=== PATIENT | female | born 1940 | race Two or more races ===

== ENCOUNTER 2017-01-25 08:12 | Inpatient (IN) | payer MEDICARE, MEDICAID ==
[~2017-01-25] VITALS: Ht 152.4 cm; Wt 49.6 kg
[~2017-01-25 08:12] MED LIST: ASCO-96 PO; ASPI-496 PO; ATOR40TA78 PO; CILO100T PO; DULO30CA2 PO; GABA300C10 PO; HYDR12.58 PO; INSU100V8 SQ; LOSA100T6 PO; MAGN250T8 PO; METF500T4 PO; RANI150C PO
[2017-01-25] MEDS ORDERED: LACTATED RINGERS 1,000 ML IV SCH (08:52)
[2017-01-25 08:58] VITALS: BP 171/92
[2017-01-25] MEDS ORDERED: PROPOFOL 50 ML ONE ×2 (09:13→11:18)
[2017-01-25] MEDS ORDERED: MIDAZOLAM 1 MG/ML, 2ML ONE (09:14)
[2017-01-25] MEDS ORDERED: FENTANYL PF 250 MCG/5ML ONE (09:14)
[2017-01-25] MEDS ORDERED: THROMBIN 5,000 UNIT VIAL TP ONE (09:18)
[2017-01-25] MEDS ORDERED: BUPIVACAINE/PF 0.25% ONE (09:18)
[2017-01-25] MEDS ORDERED: LIDOCAINE/PF 0.5% ,50ML ONE (09:18)
[2017-01-25] MEDS ORDERED: PROPOFOL 10 MG/ML, 20ML ONE (09:18)
[2017-01-25] MEDS ORDERED: VANCOMYCIN 1,000 MG ONE (09:18)
[2017-01-25] MEDS ORDERED: EPINEPHRINE 1 MG/ML, 1ML ONE (09:19)
[2017-01-25] MEDS ORDERED: CEFAZOLIN 1,000 MG ONE (09:54)
[2017-01-25] MEDS ORDERED: ONDANSETRON 2MG/ML, 2ML ONE (09:54)
[2017-01-25] MEDS ORDERED: DEXAMETHASONE 4 MG/ML, 5ML ONE (09:54)
[2017-01-25] MEDS ORDERED: SUCCINYLCHOLINE 20 MG/ML, 10ML ONE (09:54)
[2017-01-25] MEDS ORDERED: ROCURONIUM 10 MG/ML ONE (09:54)
[2017-01-25] MEDS ORDERED: HYDROmorphone 1 MG/ML, 1ML IV PRN (13:00)
[2017-01-25] MEDS ORDERED: ONDANSETRON 2MG/ML, 2ML IVPush PRN (13:00)
[2017-01-25] MEDS ORDERED: MIDAZOLAM 1 MG/ML, 2ML IV PRN (13:00)
[2017-01-25] MEDS ORDERED: OXYcodone 5 MG/5 ML ORAL.SOL UDC PO PRN (13:00)
[2017-01-25] MEDS ORDERED: LABETALOL 5MG/ML, 20ML IV PRN (13:00)
[2017-01-25] MEDS ORDERED: ACETAMINOPHEN 325 MG TABLET PO PRN (13:00)
[2017-01-25] MEDS ORDERED: ACETAMINOPHEN 650 MG/20.3 ML UDC ONE (13:12)
[2017-01-25] MEDS ORDERED: hydrALAzine 20 MG/ML, 1ML ONE (13:12)
[2017-01-25] MEDS ORDERED: FENTANYL PF 100 MCG/2ML ONE (13:13)
[2017-01-25] MEDS ORDERED: OXYcodone 5 MG/5 ML ORAL.SOL UDC ONE (13:13)
[2017-01-25] MEDS: hydrALAzine 20 MG/ML, 1ML IV PRN ×2 (13:15→15:36)
[2017-01-25] MEDS: FENTANYL PF 100 MCG/2ML IV PRN ×3 (13:34→14:40)
[2017-01-25 15:45] VITALS: BP 140/67
[2017-01-25] MEDS ORDERED: HYDROcodone/APAP 10/325 MG TABLET PO PRN (16:00)
[2017-01-25] MEDS ORDERED: ONDANSETRON 2MG/ML, 2ML IV PRN (16:00)
[2017-01-25] MEDS ORDERED: morphine SULFATE 10 MG/ML, 1ML IV PRN (16:00)
[2017-01-25] MEDS ORDERED: PROMETHAZINE 25 MG/ML, 1ML IM PRN (16:00)
[2017-01-25] MEDS ORDERED: MAGNESIUM HYDROXIDE 8%, 30ML UDC PO PRN (16:00)
[2017-01-25] MEDS ORDERED: metFORMIN 500 MG TABLET PO SCH (17:00)
[2017-01-25] MEDS: NS + 20MEQ KCL 1,000 ML IV SCH (18:09)
[2017-01-25] MEDS: CEFAZOLIN PMX 1GM/50ML 50 ML IVPB SCH (18:09)
[2017-01-25] MEDS: CLINDAMYCIN 300 MG CAPSULE PO SCH (18:34)
[2017-01-25] MEDS: HYDROcodone/APAP 5/325 TABLET PO PRN (18:35)
[2017-01-25 19:58] VITALS: BP 147/73
[2017-01-25] MEDS: INSULIN ASPART 100 UNITS/ML, PEN SQ-INSULIN SCH (21:00)
[2017-01-25] MEDS ORDERED: ATORVASTATIN 40 MG TABLET PO SCH (21:00)
[2017-01-25] MEDS ORDERED: CILOSTAZOL 100 MG TABLET PO SCH (21:00)
[2017-01-25] MEDS ORDERED: INSULIN DETEMIR 100 UNITS/ML, PEN SQ-INSULIN SCH (21:00)
[2017-01-25] MEDS: FAMOTIDINE 20 MG TABLET PO SCH (21:39)
[2017-01-25] MEDS: GABAPENTIN 300 MG CAPSULE PO SCH (21:39)
[2017-01-26] VITALS: BP 158/82
[2017-01-26] MEDS: CLINDAMYCIN 300 MG CAPSULE PO SCH ×4 (01:21→17:11)
[2017-01-26] MEDS: HYDROcodone/APAP 5/325 TABLET PO PRN ×2 (01:32→09:11)
[2017-01-26] MEDS: CEFAZOLIN PMX 1GM/50ML 50 ML IVPB SCH (01:32)
[2017-01-26 02:22] VITALS: BP 160/88
[2017-01-26] MEDS ORDERED: METOPROLOL SUCCINATE 100 MG TAB.ER.24H PO SCH (06:00)
[2017-01-26] MEDS: NS + 20MEQ KCL 1,000 ML IV SCH ×3 (06:56→12:15)
[2017-01-26 08:25] VITALS: BP 197/92
[2017-01-26] MEDS: INSULIN ASPART 100 UNITS/ML, PEN SQ-INSULIN SCH ×4 (08:51→21:00)
[2017-01-26] MEDS ORDERED: LOSARTAN 50MG TABLET PO SCH (09:00)
[2017-01-26] MEDS ORDERED: SENNA/DOCUSATE TABLET PO SCH (09:00)
[2017-01-26] MEDS: GABAPENTIN 300 MG CAPSULE PO SCH ×3 (09:11→21:03)
[2017-01-26] MEDS: FAMOTIDINE 20 MG TABLET PO SCH ×5 (09:11→21:03)
[2017-01-26] MEDS: LACTOBACILLUS CHEW TABLET PO SCH ×3 (09:12→17:11)
[2017-01-26] MEDS: ATORVASTATIN 40 MG TABLET PO SCH (09:12)
[2017-01-26] MEDS: DULOXETINE 30 MG CAPSULE.DR PO SCH (09:12)
[2017-01-26] MEDS: HYDROCHLOROTHIAZIDE 12.5 MG CAPSULE PO SCH (09:12)
[2017-01-26] MEDS ORDERED: DEXAMETHASONE 1 MG TABLET PO ONE (10:00)
[2017-01-26 11:39] LABS: BLOOD UREA NITROGEN 15 mg/dL (7-18)
[2017-01-26] MEDS ORDERED: FAMOTIDINE 20 MG TABLET PO SCH (18:00)
[2017-01-26 18:56] VITALS: BP 185/88
[2017-01-26] MEDS ORDERED: LOSARTAN 50MG TABLET PO ONE (20:30)
[2017-01-26] MEDS ORDERED: INSULIN DETEMIR 100 UNITS/ML, PEN SQ-INSULIN ONE (21:00)
[2017-01-26] MEDS ORDERED: METOPROLOL TARTRATE 100 MG TABLET PO SCH (21:00)
[2017-01-26] MEDS: METOPROLOL SUCCINATE 100 MG TAB.ER.24H PO SCH (21:03)
[2017-01-26 23:45] VITALS: BP 198/88
[2017-01-27] MEDS: HYDROcodone/APAP 5/325 TABLET PO PRN (01:58)
[2017-01-27] MEDS: CLINDAMYCIN 300 MG CAPSULE PO SCH ×2 (01:58→09:47)
[2017-01-27 03:52] VITALS: BP 144/65
[2017-01-27 04:27] VITALS: BP 134/66
[2017-01-27 07:26] VITALS: BP 157/86
[2017-01-27] MEDS: NS + 20MEQ KCL 1,000 ML IV SCH ×2 (09:40→18:59)
[2017-01-27] MEDS: INSULIN ASPART 100 UNITS/ML, PEN SQ-INSULIN SCH ×4 (09:40→21:00)
[2017-01-27] MEDS: FAMOTIDINE 20 MG TABLET PO SCH ×3 (09:41→16:11)
[2017-01-27] MEDS: DULOXETINE 30 MG CAPSULE.DR PO SCH (09:48)
[2017-01-27] MEDS: LACTOBACILLUS CHEW TABLET PO SCH ×3 (09:48→16:11)
[2017-01-27] MEDS: HYDROCHLOROTHIAZIDE 12.5 MG CAPSULE PO SCH (09:48)
[2017-01-27] MEDS: LOSARTAN 50MG TABLET PO SCH (09:48)
[2017-01-27] MEDS: GABAPENTIN 300 MG CAPSULE PO SCH ×2 (09:48→16:08)
[2017-01-27] MEDS: ATORVASTATIN 40 MG TABLET PO SCH (09:57)
[2017-01-27 12:00] VITALS: BP 157/82
[2017-01-27] MEDS ORDERED: CLINDAMYCIN 300 MG CAPSULE PO SCH (12:00)
[2017-01-27 15:10] VITALS: BP 152/72
[2017-01-27 15:43] LABS: ABG COLLECTION SITE RIGHT RADIAL; COLLATERAL CIRCULATION TESTING NORMAL
[2017-01-27 15:55] LABS: BLOOD UREA NITROGEN 15 mg/dL (7-18)
[2017-01-27 16:55] LABS: HEMATOCRIT 41.9 % (34.6-47.8); WHITE BLOOD COUNT 13.4 x10^3/uL (3.4-10)
[2017-01-27] MEDS ORDERED: ACETAMINOPHEN 500 MG TABLET PO PRN (19:00)
[2017-01-27 19:53] VITALS: BP 175/77
[2017-01-27] MEDS: METOPROLOL SUCCINATE 100 MG TAB.ER.24H PO SCH (21:00)
[2017-01-28] VITALS (10 sets, daily range): BP systolic 140–184; BP diastolic 81–106
[2017-01-28] MEDS: NS + 20MEQ KCL 1,000 ML IV SCH ×2 (01:04→08:02)
[2017-01-28] MEDS: CLINDAMYCIN 150 MG CAPSULE PO SCH ×3 (02:00→17:41)
[2017-01-28] MEDS: METOPROLOL TARTRATE 100 MG TABLET PO SCH ×3 (02:00→17:41)
[2017-01-28 05:41] LABS: HEMATOCRIT 42.9 % (34.6-47.8); HEMOGLOBIN 14.8 g/dL (11.7-16.4); WHITE BLOOD COUNT 11.6 x10^3/uL (3.4-10)
[2017-01-28 05:53] LABS: BLOOD UREA NITROGEN 22 mg/dL (7-18)
[2017-01-28] MEDS: DULOXETINE 20 MG CAPSULE.DR PO SCH ×3 (08:02→09:45)
[2017-01-28] MEDS: LOSARTAN 50MG TABLET PO SCH (08:03)
[2017-01-28] MEDS: FAMOTIDINE 20 MG TABLET PO SCH (08:03)
[2017-01-28] MEDS: LACTOBACILLUS CHEW TABLET PO SCH ×3 (08:03→17:41)
[2017-01-28] MEDS: ATORVASTATIN 40 MG TABLET PO SCH (08:03)
[2017-01-28] MEDS: HYDROCHLOROTHIAZIDE 12.5 MG CAPSULE PO SCH (08:04)
[2017-01-28] MEDS: INSULIN ASPART 100 UNITS/ML, PEN SQ-INSULIN SCH ×4 (09:55→21:20)
[2017-01-28] MEDS: DOCUSATE 50 MG/5 ML, 10ML UDC PO SCH ×2 (11:09→21:20)
[2017-01-28] MEDS ORDERED: NS + 20MEQ KCL 1,000 ML IV SCH (16:30)
[2017-01-28] MEDS: ACETAMINOPHEN 500 MG TABLET PO SCH (16:41)
[2017-01-29] VITALS (7 sets, daily range): BP systolic 135–164; BP diastolic 67–94
[2017-01-29] MEDS: ACETAMINOPHEN 500 MG TABLET PO SCH ×3 (01:08→16:48)
[2017-01-29] MEDS: CLINDAMYCIN 150 MG CAPSULE PO SCH ×3 (01:58→16:48)
[2017-01-29 05:07] LABS: HEMATOCRIT 41.1 % (34.6-47.8); HEMOGLOBIN 14.1 g/dL (11.7-16.4); WHITE BLOOD COUNT 10.3 x10^3/uL (3.4-10)
[2017-01-29] MEDS: METOPROLOL TARTRATE 100 MG TABLET PO SCH ×2 (06:13→18:33)
[2017-01-29] MEDS: INSULIN ASPART 100 UNITS/ML, PEN SQ-INSULIN SCH ×4 (08:11→21:00)
[2017-01-29] MEDS: LOSARTAN 50MG TABLET PO SCH (08:12)
[2017-01-29] MEDS: LACTOBACILLUS CHEW TABLET PO SCH ×3 (08:12→16:48)
[2017-01-29] MEDS: ATORVASTATIN 40 MG TABLET PO SCH (08:13)
[2017-01-29] MEDS: HYDROCHLOROTHIAZIDE 12.5 MG CAPSULE PO SCH (08:13)
[2017-01-29] MEDS: FAMOTIDINE 20 MG TABLET PO SCH (08:22)
[2017-01-29] MEDS: INSULIN DETEMIR 100 UNITS/ML, PEN SQ-INSULIN PRN (08:35)
[2017-01-29] MEDS: DOCUSATE 50 MG/5 ML, 10ML UDC PO SCH ×2 (10:25→23:09)
[2017-01-29 20:27] LABS: BLOOD UREA NITROGEN 22 mg/dL (7-18)
[2017-01-29] MEDS ORDERED: INSULIN ASPART 100 UNITS/ML, PEN SQ-INSULIN ONE (21:00)
[2017-01-29] MEDS ORDERED: INSULIN DETEMIR 100 UNITS/ML, PEN SQ-INSULIN ONE (21:00)
[2017-01-30] VITALS (8 sets, daily range): BP systolic 127–174; BP diastolic 74–97
[2017-01-30] MEDS ORDERED: FUROSEMIDE 20 MG/2 ML IV ONE
[2017-01-30] MEDS ORDERED: POTASSIUM CHLORIDE 10% 40 MEQ/30 ML UDC NG ONE
[2017-01-30] MEDS: CLINDAMYCIN 150 MG CAPSULE PO SCH ×3 (00:49→16:39)
[2017-01-30] MEDS: ACETAMINOPHEN 500 MG TABLET PO SCH ×3 (00:49→16:39)
[2017-01-30] MEDS: METOPROLOL TARTRATE 100 MG TABLET PO SCH ×3 (06:00→16:39)
[2017-01-30 06:01] LABS: HEMATOCRIT 42.2 % (34.6-47.8); HEMOGLOBIN 14.1 g/dL (11.7-16.4); WHITE BLOOD COUNT 7.9 x10^3/uL (3.4-10)
[2017-01-30 06:08] LABS: BLOOD UREA NITROGEN 23 mg/dL (7-18)
[2017-01-30 06:11] LABS: ASPARTATE AMINO TRANSFERASE 14 U/L (15-37)
[2017-01-30] MEDS: DOCUSATE 50 MG/5 ML, 10ML UDC PO SCH ×2 (07:52→23:30)
[2017-01-30] MEDS: LACTOBACILLUS CHEW TABLET PO SCH ×3 (07:52→16:39)
[2017-01-30] MEDS: HYDROCHLOROTHIAZIDE 12.5 MG CAPSULE PO SCH (07:52)
[2017-01-30] MEDS: FAMOTIDINE 20 MG TABLET PO SCH (07:53)
[2017-01-30] MEDS: LOSARTAN 50MG TABLET PO SCH (07:53)
[2017-01-30] MEDS: ATORVASTATIN 40 MG TABLET PO SCH (07:53)
[2017-01-30] MEDS: INSULIN ASPART 100 UNITS/ML, PEN SQ-INSULIN SCH ×4 (08:17→22:13)
[2017-01-30] MEDS ORDERED: INSULIN ASPART 100 UNITS/ML, PEN SQ-INSULIN SCH (08:30)
[2017-01-30] MEDS ORDERED: INSULIN ASPART 100 UNITS/ML, PEN SQ-INSULIN ONE ×2 (08:30→18:00)
[2017-01-30] MEDS ORDERED: INSULIN DETEMIR 100 UNITS/ML, PEN SQ-INSULIN ONE (08:30)
[2017-01-30] MEDS ORDERED: MAGNESIUM HYDROXIDE 8%, 30ML UDC NG ONE (10:30)
[2017-01-30] MEDS: ASPIRIN 81 MG TABLET CHEW NG SCH (11:01)
[2017-01-30] MEDS ORDERED: CILOSTAZOL 100 MG TABLET NG SCH (21:00)
[2017-01-30] MEDS: INSULIN DETEMIR 100 UNITS/ML, PEN SQ-INSULIN PRN (22:13)
[2017-01-31] VITALS (9 sets, daily range): BP systolic 145–220; BP diastolic 71–103
[2017-01-31] MEDS: ACETAMINOPHEN 500 MG TABLET PO SCH ×3 (00:10→17:03)
[2017-01-31 05:23] LABS: BLOOD UREA NITROGEN 29 mg/dL (7-18)
[2017-01-31] MEDS: METOPROLOL TARTRATE 100 MG TABLET PO SCH ×2 (06:37→17:03)
[2017-01-31] MEDS: LOSARTAN 50MG TABLET PO SCH (08:16)
[2017-01-31] MEDS: ATORVASTATIN 40 MG TABLET PO SCH (08:16)
[2017-01-31] MEDS: FAMOTIDINE 20 MG TABLET PO SCH (08:16)
[2017-01-31] MEDS: DOCUSATE 50 MG/5 ML, 10ML UDC PO SCH ×2 (08:16→20:28)
[2017-01-31] MEDS: ASPIRIN 81 MG TABLET CHEW NG SCH (08:16)
[2017-01-31] MEDS: LACTOBACILLUS CHEW TABLET PO SCH ×3 (08:16→17:03)
[2017-01-31] MEDS: HYDROCHLOROTHIAZIDE 12.5 MG CAPSULE PO SCH (08:16)
[2017-01-31] MEDS: INSULIN ASPART 100 UNITS/ML, PEN SQ-INSULIN SCH ×3 (08:17→18:12)
[2017-01-31] MEDS ORDERED: INSULIN DETEMIR 100 UNITS/ML, PEN SQ-INSULIN ONE (08:30)
[2017-01-31] MEDS: PHENOL THROAT SPRAY BOTTLE MM PRN ×3 (13:05→20:28)
[2017-02-01] VITALS (7 sets, daily range): BP systolic 130–167; BP diastolic 82–92
[2017-02-01] MEDS: INSULIN ASPART 100 UNITS/ML, PEN SQ-INSULIN SCH ×5 (00:01→21:57)
[2017-02-01] MEDS: INSULIN DETEMIR 100 UNITS/ML, PEN SQ-INSULIN PRN ×3 (00:02→21:56)
[2017-02-01 00:23] LABS: PATH.CAST-FLAG NOT PRESENT; SPERM-FLAG NOT PRESENT; SRC-FLAG NOT PRESENT; XTAL-FLAG NOT PRESENT; YLC-FLAG NOT PRESENT
[2017-02-01] MEDS: ACETAMINOPHEN 500 MG TABLET PO SCH ×3 (01:14→16:38)
[2017-02-01 05:53] LABS: HEMOGLOBIN 14.1 g/dL (11.7-16.4); WHITE BLOOD COUNT 9.8 x10^3/uL (3.4-10)
[2017-02-01 06:15] LABS: ASPARTATE AMINO TRANSFERASE 10 U/L (15-37); BLOOD UREA NITROGEN 30 mg/dL (7-18)
[2017-02-01] MEDS ORDERED: LORazepam 2 MG/ML, 1ML IVPush ONE (06:30)
[2017-02-01] MEDS ORDERED: DIPHENHYDRAMINE 50 MG/ML, 1ML IVPush ONE (06:30)
[2017-02-01] MEDS ORDERED: CILOSTAZOL 100 MG TABLET PO SCH (09:00)
[2017-02-01] MEDS: METOPROLOL TARTRATE 100 MG TABLET PO SCH ×2 (09:52→18:00)
[2017-02-01] MEDS: LACTOBACILLUS CHEW TABLET PO SCH ×3 (09:53→16:38)
[2017-02-01] MEDS: ASPIRIN 81 MG TABLET CHEW NG SCH (09:54)
[2017-02-01] MEDS: DOCUSATE 50 MG/5 ML, 10ML UDC PO SCH ×2 (09:54→21:55)
[2017-02-01] MEDS: HYDROCHLOROTHIAZIDE 12.5 MG CAPSULE PO SCH (09:55)
[2017-02-01] MEDS: FAMOTIDINE 20 MG TABLET PO SCH (09:55)
[2017-02-01] MEDS: LOSARTAN 50MG TABLET PO SCH (09:55)
[2017-02-01] MEDS: ATORVASTATIN 40 MG TABLET PO SCH (09:55)
[2017-02-01] MEDS: SULFAMETH/TRIMETHOPRIM 40-8MG/ML SUSP. NG SCH ×2 (10:45→21:55)
[2017-02-01] MEDS ORDERED: ZOLPIDEM 5MG TABLET NG PRN (17:00)
[2017-02-02] MEDS: ACETAMINOPHEN 500 MG TABLET PO SCH ×3 (00:55→17:33)
[2017-02-02 04:15] VITALS: BP 153/77
[2017-02-02 05:33] VITALS: BP 139/88
[2017-02-02] MEDS: METOPROLOL TARTRATE 100 MG TABLET PO SCH ×2 (06:34→17:33)
[2017-02-02 08:25] VITALS: BP 153/98
[2017-02-02] MEDS: INSULIN DETEMIR 100 UNITS/ML, PEN SQ-INSULIN PRN ×2 (08:49→21:53)
[2017-02-02] MEDS: INSULIN ASPART 100 UNITS/ML, PEN SQ-INSULIN SCH ×4 (08:49→21:55)
[2017-02-02] MEDS: LACTOBACILLUS CHEW TABLET PO SCH ×3 (08:49→17:33)
[2017-02-02] MEDS: FAMOTIDINE 20 MG TABLET PO SCH (08:50)
[2017-02-02] MEDS: LOSARTAN 50MG TABLET PO SCH (08:50)
[2017-02-02] MEDS: ATORVASTATIN 40 MG TABLET PO SCH (08:50)
[2017-02-02] MEDS: DOCUSATE 50 MG/5 ML, 10ML UDC PO SCH ×2 (08:51→21:17)
[2017-02-02] MEDS: SULFAMETH/TRIMETHOPRIM 40-8MG/ML SUSP. NG SCH ×2 (08:51→21:17)
[2017-02-02] MEDS: HYDROCHLOROTHIAZIDE 12.5 MG CAPSULE PO SCH (08:51)
[2017-02-02 14:00] VITALS: BP 162/92
[2017-02-02] MEDS: PHENOL THROAT SPRAY BOTTLE MM PRN (15:16)
[2017-02-02 17:21] VITALS: BP 189/103
[2017-02-02 20:02] VITALS: BP 131/81
[2017-02-03 00:07] VITALS: BP 133/68
[2017-02-03] MEDS: ACETAMINOPHEN 500 MG TABLET PO SCH ×2 (00:17→09:45)
[2017-02-03] MEDS: GABAPENTIN 100 MG CAPSULE PO SCH ×3 (04:39→20:58)
[2017-02-03] MEDS: HYDROcodone/APAP 5/325 TABLET PO PRN ×3 (04:40→18:12)
[2017-02-03 04:45] VITALS: BP 145/81
[2017-02-03] MEDS: METOPROLOL TARTRATE 100 MG TABLET PO SCH ×2 (06:45→17:43)
[2017-02-03 08:01] VITALS: BP 146/83
[2017-02-03] MEDS: INSULIN ASPART 100 UNITS/ML, PEN SQ-INSULIN SCH ×4 (09:59→21:30)
[2017-02-03] MEDS: INSULIN DETEMIR 100 UNITS/ML, PEN SQ-INSULIN PRN ×2 (10:00→21:49)
[2017-02-03] MEDS: ATORVASTATIN 40 MG TABLET PO SCH (10:03)
[2017-02-03] MEDS: HYDROCHLOROTHIAZIDE 12.5 MG CAPSULE PO SCH (10:04)
[2017-02-03] MEDS: FAMOTIDINE 20 MG TABLET PO SCH (10:04)
[2017-02-03] MEDS: SULFAMETH/TRIMETHOPRIM 40-8MG/ML SUSP. NG SCH ×2 (10:05→21:13)
[2017-02-03] MEDS: LOSARTAN 50MG TABLET PO SCH (10:05)
[2017-02-03] MEDS: DOCUSATE 50 MG/5 ML, 10ML UDC PO SCH ×2 (10:06→21:13)
[2017-02-03] MEDS: LACTOBACILLUS CHEW TABLET PO SCH ×3 (10:06→17:42)
[2017-02-03] MEDS: ONDANSETRON 2MG/ML, 2ML IV PRN (11:45)
[2017-02-03 13:09] VITALS: BP 136/82
[2017-02-03 15:33] VITALS: BP 123/74
[2017-02-03] MEDS ORDERED: INSULIN ASPART 100 UNITS/ML, PEN SQ-INSULIN ONE (16:45)
[2017-02-03 21:06] VITALS: BP 112/62
[2017-02-04 00:15] VITALS: BP 122/72
[2017-02-04] MEDS: ONDANSETRON 2MG/ML, 2ML IV PRN (02:58)
[2017-02-04 04:00] VITALS: BP 126/78
[2017-02-04 05:59] LABS: BLOOD UREA NITROGEN 37 mg/dL (7-18)
[2017-02-04 07:49] VITALS: BP 150/84
[2017-02-04] MEDS: DOCUSATE 50 MG/5 ML, 10ML UDC PO SCH ×2 (07:51→22:24)
[2017-02-04] MEDS: LACTOBACILLUS CHEW TABLET PO SCH ×3 (07:51→17:47)
[2017-02-04] MEDS: INSULIN ASPART 100 UNITS/ML, PEN SQ-INSULIN SCH ×4 (07:51→22:11)
[2017-02-04] MEDS: METOPROLOL TARTRATE 100 MG TABLET PO SCH ×2 (07:51→17:47)
[2017-02-04] MEDS: HYDROCHLOROTHIAZIDE 12.5 MG CAPSULE PO SCH (07:52)
[2017-02-04] MEDS: GABAPENTIN 100 MG CAPSULE PO SCH (07:52)
[2017-02-04] MEDS: ATORVASTATIN 40 MG TABLET PO SCH (07:52)
[2017-02-04] MEDS: FAMOTIDINE 20 MG TABLET PO SCH ×2 (07:52→21:00)
[2017-02-04] MEDS: LOSARTAN 50MG TABLET PO SCH (07:52)
[2017-02-04] MEDS ORDERED: MIDAZOLAM 1 MG/ML, 2ML ONE (10:57)
[2017-02-04] MEDS ORDERED: FENTANYL PF 250 MCG/5ML ONE (10:57)
[2017-02-04] MEDS ORDERED: FENTANYL PF 100 MCG/2ML ONE (10:58)
[2017-02-04] MEDS ORDERED: BUPIVACAINE/PF 0.5% ONE (11:02)
[2017-02-04] MEDS ORDERED: EPINEPHRINE 1 MG/ML, 1ML ONE (11:02)
[2017-02-04] MEDS ORDERED: PROPOFOL 10 MG/ML, 20ML ONE (11:29)
[2017-02-04] MEDS ORDERED: GLYCOPYRROLATE 0.2MG/1ML, 5ML ONE (11:29)
[2017-02-04] MEDS ORDERED: ONDANSETRON 2MG/ML, 2ML ONE (11:29)
[2017-02-04] MEDS ORDERED: ROCURONIUM 10 MG/ML ONE (11:29)
[2017-02-04] MEDS ORDERED: NEOSTIGMINE 1 MG/ML, 10ML ONE (11:29)
[2017-02-04] MEDS ORDERED: FENTANYL PF 100 MCG/2ML IV PRN (11:30)
[2017-02-04] MEDS ORDERED: ONDANSETRON 2MG/ML, 2ML IVPush PRN (11:30)
[2017-02-04] MEDS ORDERED: HYDROmorphone 1 MG/ML, 1ML IV PRN ×2 (11:30→14:30)
[2017-02-04] MEDS ORDERED: morphine SULFATE 10 MG/ML, 1ML IV PRN (14:30)
[2017-02-04] MEDS: SODIUM CHLORIDE 0.9% 1,000 ML IV SCH (15:30)
[2017-02-04] MEDS ORDERED: ONDANSETRON ODT 4 MG GT PRN (17:00)
[2017-02-04] MEDS ORDERED: NS + 20MEQ KCL 1,000 ML IV SCH (17:00)
[2017-02-04] MEDS ORDERED: INSULIN ASPART 100 UNITS/ML, PEN SQ-INSULIN ONE (17:00)
[2017-02-04] MEDS ORDERED: metFORMIN 500 MG TABLET PO SCH (17:00)
[2017-02-04] MEDS ORDERED: ONDANSETRON 2MG/ML, 2ML IV PRN (17:00)
[2017-02-04 17:47] VITALS: BP 119/62
[2017-02-04 18:28] VITALS: BP 120/58
[2017-02-04] MEDS: NS + 20MEQ KCL 1,000 ML IV SCH (20:05)
[2017-02-04] MEDS ORDERED: GABAPENTIN 300 MG CAPSULE PO SCH (21:00)
[2017-02-04] MEDS ORDERED: INSULIN DETEMIR 100 UNITS/ML, PEN SQ-INSULIN SCH (21:00)
[2017-02-04] MEDS: GABAPENTIN 100 MG CAPSULE NG SCH (22:24)
[2017-02-04] MEDS: FAMOTIDINE 40 MG/5 ML ORAL SUSP NG SCH (22:24)
[2017-02-04 22:55] VITALS: BP 132/73
[2017-02-04] MEDS: HYDROcodone/APAP 5/325 TABLET PO PRN (23:59)
[2017-02-05] MEDS: SODIUM CHLORIDE 0.9% 1,000 ML IV SCH ×3 (00:30→20:30)
[2017-02-05 03:03] VITALS: BP 145/82
[2017-02-05 06:48] LABS: BLOOD UREA NITROGEN 32 mg/dL (7-18)
[2017-02-05] MEDS: METOPROLOL TARTRATE 100 MG TABLET PO SCH ×2 (06:51→18:49)
[2017-02-05] MEDS: ASPIRIN 81 MG TABLET CHEW PO SCH (06:51)
[2017-02-05] MEDS: NS + 20MEQ KCL 1,000 ML IV SCH (07:48)
[2017-02-05 08:11] VITALS: BP 138/73
[2017-02-05] MEDS: INSULIN ASPART 100 UNITS/ML, PEN SQ-INSULIN SCH ×4 (08:21→23:55)
[2017-02-05] MEDS: LOSARTAN 50MG TABLET GT SCH (08:57)
[2017-02-05] MEDS: LACTOBACILLUS CHEW TABLET PO SCH ×3 (08:58→16:25)
[2017-02-05] MEDS: GABAPENTIN 100 MG CAPSULE NG SCH ×2 (08:58→23:53)
[2017-02-05] MEDS ORDERED: ASPIRIN 81 MG TABLET CHEW PO SCH (09:00)
[2017-02-05] MEDS ORDERED: MAGNESIUM OXIDE 400 MG TABLET PO SCH (09:00)
[2017-02-05] MEDS ORDERED: ASCORBIC ACID 500 MG TABLET PO SCH (09:00)
[2017-02-05] MEDS: HYDROCHLOROTHIAZIDE 12.5 MG CAPSULE GT SCH (09:00)
[2017-02-05] MEDS ORDERED: DULOXETINE 30 MG CAPSULE.DR PO SCH (09:00)
[2017-02-05] MEDS: HYDROcodone/APAP 5/325 TABLET PO PRN (09:02)
[2017-02-05] MEDS: FAMOTIDINE 20 MG TABLET PO SCH ×2 (09:03→21:00)
[2017-02-05] MEDS: CILOSTAZOL 100 MG TABLET PO SCH ×2 (09:03→23:54)
[2017-02-05] MEDS: DOCUSATE 50 MG/5 ML, 10ML UDC PO SCH ×2 (09:04→23:53)
[2017-02-05] MEDS: ATORVASTATIN 40 MG TABLET NG SCH (09:06)
[2017-02-05 11:55] VITALS: BP 109/58
[2017-02-05] MEDS ORDERED: INSULIN DETEMIR 100 UNITS/ML, PEN SQ-INSULIN ONE (13:00)
[2017-02-05 16:05] VITALS: BP 127/67
[2017-02-05 18:45] VITALS: BP 119/72
[2017-02-05] MEDS: FAMOTIDINE 40 MG/5 ML ORAL SUSP NG SCH (23:54)
[2017-02-05] MEDS: INSULIN DETEMIR 100 UNITS/ML, PEN SQ-INSULIN SCH (23:56)
[2017-02-06] VITALS (9 sets, daily range): BP systolic 110–151; BP diastolic 62–86
[2017-02-06 05:55] LABS: BLOOD UREA NITROGEN 25 mg/dL (7-18)
[2017-02-06] MEDS: SODIUM CHLORIDE 0.9% 1,000 ML IV SCH ×3 (06:30→22:54)
[2017-02-06] MEDS: ASPIRIN 81 MG TABLET CHEW PO SCH (07:25)
[2017-02-06] MEDS: METOPROLOL TARTRATE 100 MG TABLET PO SCH ×2 (07:25→17:37)
[2017-02-06] MEDS: INSULIN ASPART 100 UNITS/ML, PEN SQ-INSULIN SCH ×4 (08:22→21:00)
[2017-02-06] MEDS: INSULIN DETEMIR 100 UNITS/ML, PEN SQ-INSULIN SCH (08:23)
[2017-02-06] MEDS: LOSARTAN 50MG TABLET GT SCH (08:23)
[2017-02-06] MEDS: LACTOBACILLUS CHEW TABLET PO SCH ×3 (08:23→17:35)
[2017-02-06] MEDS: CILOSTAZOL 100 MG TABLET PO SCH ×2 (08:23→21:05)
[2017-02-06] MEDS: DOCUSATE 50 MG/5 ML, 10ML UDC PO SCH ×2 (08:23→21:05)
[2017-02-06] MEDS: GABAPENTIN 100 MG CAPSULE NG SCH ×2 (08:23→21:05)
[2017-02-06] MEDS: ATORVASTATIN 40 MG TABLET NG SCH (08:23)
[2017-02-06] MEDS: FAMOTIDINE 20 MG TABLET PO SCH ×2 (08:35→21:04)
[2017-02-06] MEDS: HYDROCHLOROTHIAZIDE 12.5 MG CAPSULE GT SCH (08:35)
[2017-02-06] MEDS: HYDROcodone/APAP 5/325 TABLET PO PRN (13:55)
[2017-02-06] MEDS: MAGNESIUM HYDROXIDE 8%, 30ML UDC PO PRN (17:37)
[2017-02-06] MEDS: FAMOTIDINE 40 MG/5 ML ORAL SUSP NG SCH (21:00)
[2017-02-06] MEDS ORDERED: INSULIN DETEMIR 100 UNITS/ML, PEN SQ-INSULIN ONE (21:30)
[2017-02-07 00:30] VITALS: BP 133/70
[2017-02-07 04:07] VITALS: BP 139/76
[2017-02-07] MEDS: METOPROLOL TARTRATE 100 MG TABLET PO SCH (06:06)
[2017-02-07] MEDS: ASPIRIN 81 MG TABLET CHEW PO SCH (06:06)
[2017-02-07 07:16] VITALS: BP 142/78
[2017-02-07] MEDS: INSULIN ASPART 100 UNITS/ML, PEN SQ-INSULIN SCH ×2 (08:20→13:05)
[2017-02-07] MEDS: INSULIN DETEMIR 100 UNITS/ML, PEN SQ-INSULIN SCH (08:20)
[2017-02-07] MEDS: HYDROcodone/APAP 5/325 TABLET PO PRN (08:20)
[2017-02-07] MEDS: GABAPENTIN 100 MG CAPSULE NG SCH (08:21)
[2017-02-07] MEDS: ATORVASTATIN 40 MG TABLET NG SCH (08:21)
[2017-02-07] MEDS: LOSARTAN 50MG TABLET GT SCH (08:21)
[2017-02-07] MEDS: DOCUSATE 50 MG/5 ML, 10ML UDC PO SCH (08:22)
[2017-02-07] MEDS: HYDROCHLOROTHIAZIDE 12.5 MG CAPSULE GT SCH (08:22)
[2017-02-07] MEDS: CILOSTAZOL 100 MG TABLET PO SCH (08:22)
[2017-02-07] MEDS ORDERED: METHYLNALTREXONE 12 MG/0.6 ML SQ ONE (08:30)
[2017-02-07] MEDS: MAGNESIUM HYDROXIDE 8%, 30ML UDC PO PRN (09:17)
[2017-02-07] MEDS ORDERED: BISACODYL 10 MG SUPP PR ONE (09:30)
[2017-02-07] MEDS ORDERED: BISACODYL 10 MG SUPP ONE (09:33)
[2017-02-07 12:00] VITALS: BP 131/76
== END 2017-02-07 13:45 | DRG 472 ==
LOC: INTOOBSV 08:12 → ORIP 08:12 → 4NOR 15:38 → OBSVTOIN 01-26 09:41
PROVIDERS: ADMIT Orthopaedic Surgery Orthopaedic Surgery of the Spine; ATTEND Orthopaedic Surgery Orthopaedic Surgery of the Spine
PROC: 0RG10K0 Fusion of Cervical Vertebral Joint with Nonautologous Tissue Substitute, Anterior Approach, Anterior Column, Open Approach (ICD-10-PCS; 2017-01-25)
PROC: 4A1004G Monitoring of Central Nervous Electrical Activity, Intraoperative, Open Approach (ICD-10-PCS; 2017-01-25)
PROC: 0RB30ZZ Excision of Cervical Vertebral Disc, Open Approach (ICD-10-PCS; principal; 2017-01-25 09:30)
PROC: 0DH64UZ Insertion of Feeding Device into Stomach, Percutaneous Endoscopic Approach (ICD-10-PCS; 2017-02-04)
DX: M48.02 Spinal stenosis, cervical region (principal); G95.89 Other specified diseases of spinal cord; E11.42 Type 2 diabetes mellitus with diabetic polyneuropathy; R13.10 Dysphagia, unspecified; E11.51 Type 2 diabetes mellitus with diabetic peripheral angiopathy without gangrene; E87.1 Hypo-osmolality and hyponatremia; M41.9 Scoliosis, unspecified; N39.0 Urinary tract infection, site not specified; B95.5 Unspecified streptococcus as the cause of diseases classified elsewhere; E78.5 Hyperlipidemia, unspecified; F32.9 Major depressive disorder, single episode, unspecified; I10 Essential (primary) hypertension; I25.10 Atherosclerotic heart disease of native coronary artery without angina pectoris; K21.9 Gastro-esophageal reflux disease without esophagitis; K52.9 Noninfective gastroenteritis and colitis, unspecified; M81.0 Age-related osteoporosis without current pathological fracture; N39.41 Urge incontinence; Z79.4 Long term (current) use of insulin; Z79.82 Long term (current) use of aspirin; Z79.899 Other long term (current) drug therapy; Z85.42 Personal history of malignant neoplasm of other parts of uterus; Z88.0 Allergy status to penicillin; Z90.710 Acquired absence of both cervix and uterus; Z95.1 Presence of aortocoronary bypass graft; R44.1 Visual hallucinations
CPT/HCPCS: 36415; 36600; 70450; 70490; 71010; 72040; 74000; 74230; 80048; 80053; 81001; 82140; 82607; 82746; 82803; 82962; 84443; 85025; 86850; 86900; 87040; 87086; 93005; 95938; 95941; B4087; C1713; G0378; J0171; J0690; J1100; J1170; J1815; J2001; J2250; J2405; J2704; J2710; J3010; J3370; J3480; J3490; C1762; J0330; J0360; J1200; J1940; J7030; J7120